=== PATIENT | male | born 1970 | race Caucasian/White ===

== ENCOUNTER 2021-03-19 09:46 | Emergency (ER) | payer SELFPAY ==
[2021-03-19] MEDS ORDERED: IBUPROFEN 800 MG TAB PO ONE (11:31)
[2021-03-19] MEDS ORDERED: ONDANSETRON 4 MG ODT TAB PO ONE (11:31)
--- NOTE | 2021-03-19 11:31 | Emergency Department Report ---
ED Dizziness HPI - General Chief Complaint: Dizziness Stated Complaint: DIZZINESS Time Seen by Provider: 03/19/21 11:24 Source: patient Mode of arrival: Ambulatory Limitations: Language Barrier - History of Present Illness Initial Comments: Patient presents with dizziness. He has only been ill for a day. He describes the room spinning. He has had a little bit of a headache. He has had some myalgias. He reports having some nausea with occasional vomiting but no diarrhea. There has been no hematemesis or coffee-ground emesis. He denies fevers. There has been no cough. He has had some congestion. Patient states that he just did not feel well and came here for evaluation. There was a family member on his father side that had a cerebral aneurysm and this made him concerned. He does report having a headache. This was gradual onset in the cervical area. It is not abrupt onset. It was not thunderclap in nature. He has had no diplopia. He denies numbness or tingling in the arms or legs. Dizziness is worse when he turns his head. - Related Data Previous Rx's Medication Instructions Recorded Last Taken Type Ibuprofen [Motrin] 600 mg PO Q8H PRN #30 tablet 03/19/21 Unknown Rx Meclizine [Antivert] 25 mg PO TID PRN #30 tab 03/19/21 Unknown Rx Ondansetron [Zofran ODT TAB] 8 mg PO Q8HR PRN #20 tab.rapdis 03/19/21 Unknown Rx Allergies Allergy/AdvReac Type Severity Reaction Status Date / Time No Known Allergies Allergy Verified 03/19/21 09:49 ED Review of Systems ROS: Stated complaint: DIZZINESS Other details as noted in HPI Comment: All other systems reviewed and negative Constitutional: denies: fever Eyes: denies: vision change ENT: denies: throat pain Respiratory: denies: cough Cardiovascular: denies: chest pain Endocrine: denies: unexplained weight loss Gastrointestinal: as per HPI Genitourinary: denies: dysuria Musculoskeletal: denies: back pain Skin: denies: rash Neurological: as per HPI Hematological/Lymphatic: denies: easy bruising ED Past Medical Hx - Past Medical History Previous Medical History?: No - Family History Family history: other (Cerebral aneurysm) - Social History Substance Use Type: Other (Denies drug use) - Medications Home Medications: Home Medications Medication Instructions Recorded Confirmed Last Taken Type Ibuprofen [Motrin] 600 mg PO Q8H PRN #30 tablet 03/19/21 Unknown Rx Meclizine [Antivert] 25 mg PO TID PRN #30 tab 03/19/21 Unknown Rx Ondansetron [Zofran ODT TAB] 8 mg PO Q8HR PRN #20 tab.rapdis 03/19/21 Unknown Rx ED Physical Exam - General Limitations: Language Barrier, Other (Pulse ox noted and normal) General appearance: alert, in no apparent distress - Head Head exam: Present: atraumatic, normocephalic - Eye Eye exam: Present: normal appearance, EOMI. Absent: scleral icterus - ENT ENT exam: Present: normal orophraynx, normal external ear exam - Neck Neck exam: Present: normal inspection. Absent: meningismus - Respiratory Respiratory exam: Present: normal lung sounds bilaterally. Absent: respiratory distress - Cardiovascular Cardiovascular Exam: Present: regular rate, normal rhythm - GI/Abdominal GI/Abdominal exam: Present: soft. Absent: distended - Extremities Exam Extremities exam: Present: normal capillary refill. Absent: pedal edema - Back Exam Back exam: Absent: CVA tenderness (R), CVA tenderness (L) - Neurological Exam Neurological exam: Present: alert, oriented X3, CN II-XII intact, normal gait, reflexes normal, other (NIH score 0). Absent: motor sensory deficit - Psychiatric Psychiatric exam: Present: normal affect, normal mood - Skin Skin exam: Present: warm, dry ED Course Vital Signs 03/19/21 03/19/21 03/19/21 09:47 12:00 12:59 Temperature 98 F Pulse Rate 74 Respiratory 20 14 14 Rate Blood Pressure 136/100 [Left] O2 Sat by Pulse 100 Oximetry 03/19/21 13:26 Temperature 97.7 F Pulse Rate 74 Respiratory 12 Rate Blood Pressure 116/69 [Left] O2 Sat by Pulse 98 Oximetry - Reevaluation(s) Reevaluation #1: 03/19/21 11:[address] was ordered. Old records reviewed. Reevaluation #2: 03/19/21 13:45 Work-up was complete and the patient was discharged. ED Medical Decision Making - Lab Data Result diagrams: 03/19/21 11:50 - EKG Data -: EKG Interpreted by Me - EKG Data 03/19/21 11:31 0954-EKG shows normal sinus rhythm at 64. QRS is prolonged at 122 and this is a nonspecific conduction delay. QT corrected is normal at 4-25. Patient has no ST elevation to suggest STEMI. There is no ST depression suggestive of ischemia. No old EKG is available for comparison. - Radiology Data Radiology results: report reviewed - Medical Decision Making Patient presents with dizziness along with muscle aches and body aches. Is reported some nausea and GI upset. He had also had a headache. Symptoms seem to be more viral in nature at this time. He certainly does not have CT evidence of tumor, mass, or aneurysm. There is no bleeding noted. His headache was not thunderclap in nature. Was not abrupt onset in nature. It was not a maximum intensity at the time of onset. He has no abdominal tenderness to suggest bowel obstruction, hepatitis, pancreatitis, or appendicitis. He has no peritoneal finding. Patient did report some pain in his legs. He certainly could have myalgias related to some sort of viral infection, including Covid. He was treated symptomatically and referred for outpatient evaluation and follow-up. Critical Care Time: No Critical care attestation.: If time is entered above; I have spent that time in minutes in the direct care of this critically ill patient, excluding procedure time. ED Disposition Clinical Impression: Dizziness, Nausea Acute headache Qualifiers: Headache type: unspecified Intractability: not intractable Qualified Code(s): R51.9 - Headache, unspecified Disposition: 01 HOME / SELF CARE / HOMELESS Is pt being admited?: No Condition: Stable Instructions: General Headache Without Cause, Sinus Headache, Nausea and Vomiting, Adult, Dizziness, [id number] Additional Instructions: Drink plenty water. Return for problems. Follow-up with your regular doctor f or recheck and further management. Follow-up with the referral physician if you do not have a regular doctor. Prescriptions: Meclizine [Antivert] 25 mg PO TID PRN #30 tab PRN Reason: Vertigo Ibuprofen [Motrin] 600 mg PO Q8H PRN #30 tablet PRN Reason: Pain Ondansetron [Zofran ODT TAB] 8 mg PO Q8HR PRN #20 tab.rapdis PRN Reason: Nausea Referrals: PRIMARY CARE, [Primary Care Provider] - 3-5 Days JODI MYLES MD [Staff Physician] - 3-5 Days Print Language: FRENCH
[2021-03-19 12:20] LABS: Blood Urea Nitrogen 15 mg/dL (9-20); Calcium 9.2 mg/dL (8.4-10.2); Hemolysis Index 6
[2021-03-19 12:24] LABS: BUN/Creatinine Ratio 25
--- NOTE | 2021-03-19 12:37 | Cat Scan Report ---
CT head/brain wo con INDICATION / CLINICAL INFORMATION: 50 years Male; case, dizziness, father w/aneurysm. TECHNIQUE: Routine CT head without contrast. All CT scans at this location are performed using CT dos e reduction for ALARA by means of automated exposure control. Note, only a portion of the sagittal re construction is available for interpretation; however, between the axial and coronal reconstructions, this study is diagnostic. COMPARISON: None. FINDINGS: BRAIN / INTRACRANIAL CONTENTS: Small lipoma seen along the tentorium cerebelli on the left Good of no clinical significance. Otherwise, no acute hemorrhage, mass effect, midline shift, hydrocephalus, or acute, large territori al infarct. No signs of significant atrophy or chronic infarct. No significant white matter abnormali ty seen. CRANIOCERVICAL JUNCTION: No significant abnormality. ORBITS: No significant abnormality of visualized orbits. SINUSES / MASTOIDS: Mild to moderate mucosal thickening in the ethmoids. Similar findings, as well as air-fluid levels, seen in the left sphenoid sinus and right maxillary antrum. There is near complete opacification of the small right sphenoid sinus. ADDITIONAL FINDINGS: None. IMPRESSION: 1. No focal mass, hemorrhage, hydrocephalus, or acute, large territorial infarct. 2. Sinus disease, as described above. Signer Name: Jorge A Mota MD, III Signed: 03/19/2021 12:32 PM Workstation Name: [id number]
[2021-03-19 13:27] VITALS: BP 116/69
--- NOTE | 2021-03-20 08:48 | Electrocardiograph Report ---
[facility] Test Date: 2021-03-19 Test Time: 09:54:57 Pat Name: BETO WELLS Department: Room: Gender: M [employer]: PURVI : 1970 Requested By: DIPTI MUÑOZ Order Number: [id number] Reading MD: Ross Teague Measurements Intervals [place] Rate: 64 P: 49 FL: 179 QRS: -6 QRSD: 122 T: 47 QT: 412 QTc: 425 Interpretive Statements Sinus rhythm nonspecific st-t No previous ECG available for comparison Electronically Signed On 03-20-2021 8:48:04 EST by Ross Teague
== END 2021-03-19 14:29 | disposition home or self-care (01) ==
LOC: ED 09:46
DX: R42 Dizziness and giddiness (principal); R51.9 Headache, unspecified; M79.18 Myalgia, other site; R11.0 Nausea
CPT/HCPCS: 36415; 70450; 80048; 93005; 93010; 99284; J3490; Q0162